=== PATIENT | female | born 1970 | race Two or more races ===

== ENCOUNTER → 2016-12-10 | Outpatient (CLI) | payer BC ==
[2015-08-21 12:23] VITALS: BP 97/53
--- NOTE | 2016-12-10 12:37 | RAD ---
Indication pain. AP oblique and lateral views of the left knee were obtained. Bony mineralization appears normal. No fracture is seen. Significant degenerative changes are not apparent on plain films. IMPRESSION: No acute or significant finding seen involving the left knee on plain films
== END | disposition home or self-care (01) ==
LOC: RAD 11:57
PROVIDERS: ATTEND Family Medicine
DX: M17.12 Unilateral primary osteoarthritis, left knee (principal)
CPT/HCPCS: 73562

== ENCOUNTER 2018-09-08 06:34 | Emergency (ER) | payer BC ==
[~2018-09-08] VITALS: Ht 160 cm; Wt 86.2 kg
[2018-09-08 06:55] VITALS: BP 117/72
--- NOTE | 2018-09-08 07:44 | PHYS DOC ---
Past Medical History Past Medical History: No Pertinent History Past Surgical History: Appendectomy, Cholecystectomy, Alcohol Use: None Drug Use: None Adult General Chief Complaint Chief Complaint: SKIN PROBLEM HPI HPI Patient is a 48-year-old female who presents with complaint of hives and itching all over that started during the night. Patient states that she had not taken anything for the symptoms and states that over the last 2 hours symptoms were quite severe but recently they have subsided somewhat. Patient does indicate that she had eaten a new dip that she had not had before and wonders if that could be the cause. She also indicates that she recently had changed over her laundry detergent from gain to tide. Review of Systems Review of Systems Constitutional: Denies fever or chills [] HENT: Denies nasal congestion or sore throat [] Respiratory: Denies cough or shortness of breath [] Cardiovascular: No additional information not addressed in HPI [] Integument: Positive urticarial rash and itching [] Current Medications Current Medications Current Medications Medications (Trade) Dose Ordered Sig/Destiney Start Time Stop Time Status Last Admin Dose Admin Diphenhydramine HCl (Benadryl) 50 mg 1X ONCE 09/08/18 07:45 09/08/18 07:46 DC 09/08/18 08:06 50 MG Methylprednisolone Sodium Succinate (SOLU-Medrol 125MG VIAL) 125 mg 1X ONCE 09/08/18 07:45 09/08/18 07:46 DC 09/08/18 08:08 125 MG Allergies Allergies Allergies Coded Allergies Type Severity Reaction Last Updated Verified No Known Drug Allergies 08/21/15 No Physical Exam Physical Exam Constitutional: Well developed, well nourished, no acute distress, non-toxic appearance. [] HENT: Normocephalic, atraumatic, bilateral external ears normal, oropharynx moist, no oral exudates, nose normal. [] Cardiovascular:Heart rate regular rhythm, no murmur [] Lungs & Thorax: Bilateral breath sounds clear to auscultation [] Skin: Warm, dry, mild diffuse urticarial rash is present. [] Current Patient Data Vital Signs Vital Signs Date Time Temp Pulse Resp B/P (MAP) Pulse Ox O2 Delivery O2 Flow Rate FiO2 09/08/18 06:55 98.3 75 20 117/72 (87) 99 Room Air 98.3 EKG EKG [] Radiology/Procedures Radiology/Procedures [] Course & Med Decision Making Course & Med Decision Making Pertinent Labs and Imaging studies reviewed. (See chart for details) [] Dragon Disclaimer Dragon Disclaimer This electronic medical record was generated, in whole or in part, using a voice recognition dictation system. Departure Departure Impression: Primary Impression: Urticaria Disposition: HOME, SELF-CARE Condition: STABLE Referrals: RM EDMONDSON MD (PCP) Patient Instructions: Form - Excuse from Work, School, or Physical Activity, Hives Scripts Methylprednisolone (MEDROL) 4 Mg Tab.ds.pk 1 PKG PO UD, #1 PKG Prov: HIPOLITO VALENCIA Jr. DO 09/08/18 HIPOLITO VALENCIA Jr. DO Sep 08, 2018 07:44
[2018-09-08] MEDS ORDERED: methylPREDNISolone SOD SUCC PF 125 MG/2 ML VIAL. IM ONE (07:45)
[2018-09-08] MEDS ORDERED: diphenhydrAMINE 50 MG/ML VIAL IM ONE (07:45)
[2018-09-08] MEDS ORDERED: METH4TAB2 PO (08:49)
== END 2018-09-08 09:01 | disposition home or self-care (01) ==
LOC: ER 06:34
DX: L50.9 Urticaria, unspecified (principal); Z90.89 Acquired absence of other organs; Z90.49 Acquired absence of other specified parts of digestive tract; Z98.890 Other specified postprocedural states
CPT/HCPCS: 96372; 99283; J1200; J2930; 99284